=== PATIENT | male | born 1955 | race American Indian/Alaskan Native ===

== ENCOUNTER 2016-07-04 10:06 | Emergency (ER) | payer MEDICARE, MEDICAID ==
[2016-07-04 10:12] VITALS: RESP 20
--- NOTE | 2016-07-04 11:26 | C.PDOC ---
History Of Present Illness 61 year old patient, with a past medical history of hypertension, schizophrenia , and anxiety, presents to the emergency department complaining of a slow gait since yesterday. Patient is from a resident facility. Patient states he is "not walking as fast as usual," but doesn't know why. Patient denies back pain, numbness, lower extremity weakness, fever or chills. pt denies any psychiatric issues, no hi/si or ah. denies any recent trauma. Time Seen by Provider: 07/04/16 10:12 Chief Complaint (Nursing): Psychiatric Evaluation History Per: Patient History/Exam Limitations: no limitations Onset/Duration Of Symptoms: Days (1) Current Symptoms Are (Timing): Still Present Suicide/Self Injury Attempted (Context): None Modifying Factor(s): None Severity: None Pain Scale Rating Of: 0 Involuntary Hold By: None Recent travel outside of the [place]: No Past Medical History Reviewed: Historical Data, Nursing Documentation, Vital Signs Vital Signs: Last Vital Signs Temp 97.8 F 07/04/16 13:56 Pulse 85 07/04/16 13:56 Resp 20 07/04/16 13:56 BP 152/92 H 07/04/16 13:56 Pulse Ox 96 07/06/16 11:12 - Medical History PMH: Anxiety, HTN, Schizophrenia Surgical History: Cholecystectomy Family History: States: Unknown Family Hx - Social History Hx Tobacco Use: No Hx Alcohol Use: No Hx Substance Use: No - Immunization History Hx Tetanus Toxoid Vaccination: No Hx Influenza Vaccination: No Hx Pneumococcal Vaccination: No Review Of Systems Except As Marked, All Systems Reviewed And Found Negative. Constitutional: Negative for: Fever, Chills, Other (head injury) Musculoskeletal: Negative for: Back Pain Neurological: Positive for: Other (slower than usual gait). Negative for: Weakness, Numbness Psych: Negative for: Depression, Suicidal ideation Physical Exam - Physical Exam Appears: Non-toxic, No Acute Distress Skin: Warm, Dry Head: Atraumatic, Normacephalic Eye(s): bilateral: Normal Inspection, PERRL, EOMI Neck: Normal ROM, No Midline Cervical Tenderness, Supple Chest: Symmetrical, No Deformity Cardiovascular: Rhythm Regular, No Murmur Respiratory: Normal Breath Sounds, No Rales, No Rhonchi, No Wheezing Gastrointestinal/Abdominal: Soft, No Tenderness, No Guarding, No Rebound Back: Normal Inspection, No CVA Tenderness, No Vertebral Tenderness, No Decreased ROM Extremity: Normal ROM, No Tenderness, No Calf Tenderness Extremity: Bilateral: Atraumatic Neurological/Psych: Oriented x3, Normal Speech, Normal Cognition, Normal Cranial Nerves, Normal Motor, Normal Sensation, No Romberg, Other ((-)pronator drift (-)Rombergs (+)LETY intact (+)tandem walk (+) 5 out of 5 strength upper and lower extremities ) Gait: Steady ED Course And Treatment O2 Sat by Pulse Oximetry: 96 (RA) Pulse Ox Interpretation: Normal - CT Scan/US Head CT Other Rad Studies (CT/US): Read By Radiologist (Rober Flores), Radiology Report Reviewed CT/US Interpretation: PROCEDURE: CT HEAD WITHOUT CONTRAST. HISTORY: slower walk than usual. COMPARISON: 09/24/2015. TECHNIQUE: Axial computed tomography images were obtained through the head/brain without intravenous contrast. Patient motion limits evaluation. Radiation dose: Total exam DLP = 900.63 mGy-cm. FINDINGS: HEMORRHAGE: No intracranial hemorrhage. BRAIN: No mass effect or edema. Age related volume loss. No CT evidence of acute territorial infarct. Mild patchy hypodensities throughout the bilateral cerebral hemispheric white matter are most likely from chronic small vessel ischemic changes. VENTRICLES: Unremarkable. No hydrocephalus. CALVARIUM: Unremarkable. PARANASAL SINUSES: Unremarkable as visualized. No significant inflammatory changes. MASTOID AIR CELLS: Unremarkable as visualized. No inflammatory changes. OTHER FINDINGS: None. IMPRESSION: No CT evidence of acute intracranial hemorrhage or acute territorial infarct. Acute infarction may be CT occult within first 24 hours. If a focal deficit persists, consider followup CT or MRI for further evaluation. Progress Note: Plan: Head CT Medical Decision Making Medical Decision Making: pt walking around in with no difficulty, no gait abnormality noted. will d/c with pmd outpatient f/u. Disposition Counseled Patient/Family Regarding: Studies Performed, Diagnosis, Need For Followup - Disposition Disposition: HOME/ ROUTINE Disposition Time: 13:50 Condition: STABLE Additional Instructions: Follow up with your primary care doctor in 1-2 days. Return to ER for any worsening symptoms. Forms: General Discharge Instructions - Clinical Impression Clinical Impression: Altered gait - PA / OXYGEN EQUIPMENT TECHNICIAN / Resident Statement MD/DO has reviewed & agrees with the documentation as recorded. - Scribe Statement The provider has reviewed the documentation as recorded by the Scribe Samantha Dowling All medical record entries made by the Scribe were at my direction and personally dictated by me. I have reviewed the chart and agree that the record accurately reflects my personal performance of the history, physical exam, medical decision making, and the department course for this patient. I have also personally directed, reviewed, and agree with the discharge instructions and disposition.
--- NOTE | 2016-07-04 12:04 | CT ---
PROCEDURE: CT HEAD WITHOUT CONTRAST. HISTORY: slower walk than usual COMPARISON: 09/24/2015 TECHNIQUE: Axial computed tomography images were obtained through the head/brain without intravenous contrast. Patient motion limits evaluation. Radiation dose: Total exam DLP = 900.63 mGy-cm. FINDINGS: HEMORRHAGE: No intracranial hemorrhage. BRAIN: No mass effect or edema. Age related volume loss. No CT evidence of acute territorial infarct. Mild patchy hypodensities throughout the bilateral cerebral hemispheric white matter are most likely from chronic small vessel ischemic changes. VENTRICLES: Unremarkable. No hydrocephalus. CALVARIUM: Unremarkable. PARANASAL SINUSES: Unremarkable as visualized. No significant inflammatory changes. MASTOID AIR CELLS: Unremarkable as visualized. No inflammatory changes. OTHER FINDINGS: None. IMPRESSION: No CT evidence of acute intracranial hemorrhage or acute territorial infarct. Acute infarction may be CT occult within first 24 hours. If a focal deficit persists, consider followup CT or MRI for further evaluation.
[2016-07-04 13:57] VITALS: BP 152/92; PULSE 85; TEMP 97.8
[2016-07-04 13:58] VITALS: O2SAT 96
== END 2016-07-04 14:10 | disposition home or self-care (01) ==
LOC: C.ER 10:06
DX: R26.89 Other abnormalities of gait and mobility (principal)

== ENCOUNTER 2017-06-18 08:07 | Day surgery (SDC) | payer MEDICARE, MEDICAID ==
[2017-06-18 08:54] VITALS: BMI 33.1
[2017-06-18] MEDS ORDERED: Propofol 10 mg/ml Inj (20 ML) ONE (09:31)
[2017-06-18] MEDS ORDERED: Lidocaine Hydrochloride 5 ML INJ ONE (09:33)
--- NOTE | 2017-06-18 09:41 | CP.SDSHP ---
Same Day Surgery H & P - History Proposed Procedure: COLONSCOPY Pre-Op Diagnosis: SEE NOTES - Previous Medical/Surgical History Cardiac: Hypertension Neuro: Other Pain: 2.Mild Pain - Allergies Allergies: Allergies No Known Allergies Allergy (Verified 06/18/17 08:51) - Physical Exam General Appearance: N Vital Signs: Vital Signs 06/18/17 09:05 Temperature 98.9 F Pulse Rate 90 Respiratory 18 Rate Blood Pressure 166/85 H O2 Sat by Pulse 95 Oximetry Mental Status: Alert & Oriented x3 Neuro: Other Heart: WNL Lungs: WNL GI: WNL - {Optional Preform as Required} Breast: WNL Abdomen: Other Rectal: Other Integument: WNL : WNL Ortho: WNL ENT: WNL - Impression Pt. Evaluated Today:Candidate for Anesthesia & Procedure: Yes - Date & Time Time: 09:40 Short Stay Discharge - Short Stay Discharge Admitting Diagnosis/Reason for Visit: COLON SCREENING Disposition: HOME/ ROUTINE
[2017-06-18] MEDS ORDERED: Lactated Ringer's 1,000 ML IV ONE (09:44)
[2017-06-18] MEDS ORDERED: Lactated Ringer's 1,000 ML IV SCH (09:45)
[2017-06-18] MEDS ORDERED: Pantoprazole 40 mg EC Tab PO ONE (10:35)
[2017-06-18 11:13] VITALS: BP 121/77; PULSE 81; RESP 22; TEMP 97.5; O2SAT 96
== END 2017-06-18 11:05 | disposition home or self-care (01) ==
LOC: C.ENDO 08:07
PROVIDERS: ATTEND Specialist
DX: Z12.11 Encounter for screening for malignant neoplasm of colon (principal); K64.8 Other hemorrhoids; K64.4 Residual hemorrhoidal skin tags; I10 Essential (primary) hypertension; Z79.899 Other long term (current) drug therapy; F20.9 Schizophrenia, unspecified; F41.9 Anxiety disorder, unspecified; F32.9 Major depressive disorder, single episode, unspecified; K58.9 Irritable bowel syndrome, unspecified
CPT/HCPCS: 45330; J2704; J7120

== ENCOUNTER 2017-12-16 08:23 | Day surgery (SDC) | payer MEDICARE, MEDICAID ==
--- NOTE | 2017-12-16 08:52 | CP.SDSHP ---
Same Day Surgery H & P - History Proposed Procedure: COLONSCOPY Pre-Op Diagnosis: SEE NOTES - Previous Medical/Surgical History Misc: Other Pain: 4.Moderate Pain - Allergies Allergies: Allergies No Known Allergies Allergy (Verified 06/18/17 08:51) - Physical Exam General Appearance: N Neuro: WNL Heart: Other Lungs: WNL GI: Other - {Optional Preform as Required} Breast: WNL Abdomen: Other Rectal: Other Integument: WNL : WNL Ortho: Other ENT: WNL - Impression Pt. Evaluated Today:Candidate for Anesthesia & Procedure: Yes - Date & Time Time: 08:52 Short Stay Discharge - Short Stay Discharge Admitting Diagnosis/Reason for Visit: HEMORRHAGE OF ANUS AND RECTUM Disposition: HOME/ ROUTINE Referrals: Alonzo Mensah MD [Primary Care Provider] -
[2017-12-16] MEDS ORDERED: Belladonna-Phenobarbital PO STA (09:00)
[2017-12-16] MEDS ORDERED: Lactated Ringer's 500 ML IV ONE (09:04)
[2017-12-16] MEDS ORDERED: Propofol 10 mg/ml Inj (20 ML) ONE ×2 (09:07)
[2017-12-16] MEDS ORDERED: Midazolam 2 MG/2 ML VIAL ONE (09:07)
[2017-12-16] MEDS ORDERED: Lidocaine Hydrochloride 5 ML INJ ONE (09:08)
[2017-12-16 09:09] VITALS: O2SAT 100
[2017-12-16] MEDS ORDERED: Lactated Ringer's 500 ML IV SCH (09:15)
[2017-12-16 09:42] VITALS: TEMP 97.5
[2017-12-16 11:00] VITALS: BP 146/97; PULSE 73; RESP 20
== END 2017-12-16 10:59 | disposition home or self-care (01) ==
LOC: C.ENDO 08:23
PROVIDERS: ATTEND Specialist
DX: K58.9 Irritable bowel syndrome, unspecified (principal); K62.5 Hemorrhage of anus and rectum; K60.2 Anal fissure, unspecified; K64.8 Other hemorrhoids
CPT/HCPCS: 45380; 88305; J2250; J2704; J7120